=== PATIENT | female | born 1935 | race Caucasian/White ===

== ENCOUNTER 2021-10-02 19:17 | Inpatient (IN) | payer MEDICARE ==
[~2021-10-02] VITALS: Ht 160 cm; Wt 69.9 kg
[~2021-10-02 19:17] MED LIST: DARVOCET N 1001 TAB PO; FLOMAX0.4 MG PO; MEDROL DOSEPAK4 MG PO; PROPRANOLOL HC120 M1 PO; VICODIN 5/500 505 MG PO
[2021-10-02 19:22] VITALS: BP 219/116
[2021-10-02 19:23] VITALS: BP 219/116
[2021-10-02] MEDS ORDERED: LOSARTAN-HCTZ1 EAC2 PO (19:25)
[2021-10-02] MEDS ORDERED: PROPRANOLOL HC160 MG PO (19:25)
[2021-10-02] MEDS ORDERED: ECOTRIN325 M1 PO (19:26)
[2021-10-02 20:59] LABS: BILIRUBIN Negative (Negative); BLOOD 1+ (Negative); CLARITY Clear (Clear); COLOR Yellow (Yellow); GLUCOSE Trace (Negative); KETONE Negative (Negative); LEUKO ESTERASE Negative (Negative); NITRITE Negative (Negative); PH 7.5 (4.5-8.0); UROBILINOGEN 0.2 E.U./dl (0.0-1.0)
[2021-10-02 21:06] LABS: BACTERIA TRACE; RBC 0-2 rbc/hpf (0-2)
[2021-10-02 22:04] VITALS: BP 180/88
[2021-10-02] MEDS ORDERED: IRBESARTAN300 M1 PO (22:08)
[2021-10-02] MEDS ORDERED: LORAZEPAM0.5 MG PO (22:08)
[2021-10-02] MEDS ORDERED: AMLODIPINE BESY10 MG PO (22:10)
[2021-10-02 23:00] LABS: BASO # 0.1 10*3/uL (0.0-0.1); BASO % 0.5 % (0.0-1.0); EOS % 0.3 % (1.0-4.0); HEMATOCRIT 40.3 % (37.0-47.0); LYMPH # 1.3 10*3/uL (1.3-4.4); MEAN CELL VOLUME 87.2 fl (81.0-99.0); MEAN CORPUSCULAR HGB 29.4 pg (27.0-31.0); MEAN CORPUSCULAR HGB CONC 33.7 g/dl (33.0-37.0); MEAN PLATELET VOLUME 10.4 fl (9.6-12.3); MONO # 0.8 10*3/uL (0.1-1.0); MONO % 5.8 % (3.0-9.0); NEUT # 10.9 10*3/uL (2.3-7.9); NEUT % 82.8 % (47.0-73.0); PLATELET COUNT AUTOMATED 243 10*3/uL (130-400); RED BLOOD COUNT 4.62 10*6/uL (4.10-5.10); RED CELL DISTRI WIDTH 12.8 % (0-14.5); WHITE BLOOD COUNT 13.1 10*3/uL (4.8-10.8)
[2021-10-02 23:16] LABS: ALBUMIN 3.5 gm/dl (3.1-4.5); ALKALINE PHOSPHATASE 123 U/L (45-117); BUN 12 mg/dl (7-24); CHLORIDE 104 mmol/L (98-107); CREATININE 0.92 mg/dL (0.55-1.02); POTASSIUM 3.9 mmol/L (3.5-5.1); SGOT/AST 27 IU/L (3-35); SGPT/ALT 27 U/L (12-78); SODIUM 138 mmol/L (136-145); TOTAL PROTEIN 7.6 gm/dL (6.4-8.2)
[2021-10-03] VITALS (11 sets, daily range): BP systolic 144–196; BP diastolic 72–100
[2021-10-03 06:19] LABS: ALBUMIN 3.2 gm/dl (3.1-4.5); ALKALINE PHOSPHATASE 113 U/L (45-117); BUN 12 mg/dl (7-24); CHLORIDE 103 mmol/L (98-107); CREATININE 0.81 mg/dL (0.55-1.02); POTASSIUM 3.7 mmol/L (3.5-5.1); SGOT/AST 24 IU/L (3-35); SGPT/ALT 24 U/L (12-78); SODIUM 138 mmol/L (136-145)
[2021-10-03 06:27] LABS: BASO # 0.1 10*3/uL (0.0-0.1); BASO % 0.5 % (0.0-1.0); EOS % 0.2 % (1.0-4.0); LYMPH # 1.1 10*3/uL (1.3-4.4); LYMPH % 11.7 % (27.0-41.0); MEAN CELL VOLUME 88.2 fl (81.0-99.0); MEAN CORPUSCULAR HGB 29.7 pg (27.0-31.0); MEAN CORPUSCULAR HGB CONC 33.7 g/dl (33.0-37.0); MONO # 0.6 10*3/uL (0.1-1.0); MONO % 6.6 % (3.0-9.0); NEUT # 7.6 10*3/uL (2.3-7.9); NEUT % 80.8 % (47.0-73.0); PLATELET COUNT AUTOMATED 228 10*3/uL (130-400); RED BLOOD COUNT 4.31 10*6/uL (4.10-5.10); RED CELL DISTRI WIDTH 12.8 % (0-14.5); WHITE BLOOD COUNT 9.5 10*3/uL (4.8-10.8)
[2021-10-04] VITALS (8 sets, daily range): BP systolic 117–206; BP diastolic 55–91
[2021-10-04 06:28] LABS: BASO % 0.1 % (0.0-1.0); LYMPH # 1.2 10*3/uL (1.3-4.4); LYMPH % 9.9 % (27.0-41.0); MEAN CELL VOLUME 88.1 fl (81.0-99.0); MEAN PLATELET VOLUME 10.8 fl (9.6-12.3); MONO # 0.9 10*3/uL (0.1-1.0); MONO % 6.9 % (3.0-9.0); NEUT # 10.4 10*3/uL (2.3-7.9); NEUT % 82.5 % (47.0-73.0); PLATELET COUNT AUTOMATED 232 10*3/uL (130-400); WHITE BLOOD COUNT 12.5 10*3/uL (4.8-10.8)
[2021-10-04 06:40] LABS: BUN 17 mg/dl (7-24); CHLORIDE 104 mmol/L (98-107); CREATININE 0.97 mg/dL (0.55-1.02); POTASSIUM 3.7 mmol/L (3.5-5.1); SODIUM 137 mmol/L (136-145)
[2021-10-05] VITALS: BP 175/61
[2021-10-05 06:13] LABS: BUN 19 mg/dl (7-24); CHLORIDE 107 mmol/L (98-107); CREATININE 0.87 mg/dL (0.55-1.02); POTASSIUM 3.6 mmol/L (3.5-5.1); SODIUM 137 mmol/L (136-145)
[2021-10-05 06:32] LABS: BASO % 0.1 % (0.0-1.0); EOS % 0.1 % (1.0-4.0); HEMATOCRIT 31.4 % (37.0-47.0); LYMPH # 1.7 10*3/uL (1.3-4.4); LYMPH % 16.2 % (27.0-41.0); MEAN CELL VOLUME 87.2 fl (81.0-99.0); MEAN CORPUSCULAR HGB 29.2 pg (27.0-31.0); MEAN CORPUSCULAR HGB CONC 33.4 g/dl (33.0-37.0); MEAN PLATELET VOLUME 11.3 fl (9.6-12.3); MONO # 1.5 10*3/uL (0.1-1.0); MONO % 14.2 % (3.0-9.0); NEUT # 7.2 10*3/uL (2.3-7.9); NEUT % 69.1 % (47.0-73.0); PLATELET COUNT AUTOMATED 189 10*3/uL (130-400); RED CELL DISTRI WIDTH 13.2 % (0-14.5); WHITE BLOOD COUNT 10.4 10*3/uL (4.8-10.8)
[2021-10-05 08:00] VITALS: BP 102/75
[2021-10-05 16:00] VITALS: BP 183/60
[2021-10-05 20:00] VITALS: BP 180/61
[2021-10-06] VITALS: BP 167/66
[2021-10-06 06:35] LABS: BASO % 0.4 % (0.0-1.0); EOS # 0.1 10*3/uL (0.0-0.4); EOS % 1.3 % (1.0-4.0); HEMATOCRIT 32.1 % (37.0-47.0); LYMPH # 1.6 10*3/uL (1.3-4.4); LYMPH % 16.8 % (27.0-41.0); MEAN CELL VOLUME 87.9 fl (81.0-99.0); MEAN CORPUSCULAR HGB 29.6 pg (27.0-31.0); MEAN CORPUSCULAR HGB CONC 33.6 g/dl (33.0-37.0); MEAN PLATELET VOLUME 10.6 fl (9.6-12.3); MONO # 1.2 10*3/uL (0.1-1.0); MONO % 12.5 % (3.0-9.0); NEUT # 6.6 10*3/uL (2.3-7.9); NEUT % 68.2 % (47.0-73.0); PLATELET COUNT AUTOMATED 174 10*3/uL (130-400); RED BLOOD COUNT 3.65 10*6/uL (4.10-5.10); RED CELL DISTRI WIDTH 13.3 % (0-14.5); WHITE BLOOD COUNT 9.7 10*3/uL (4.8-10.8)
[2021-10-06 06:51] LABS: BUN 15 mg/dl (7-24); CHLORIDE 105 mmol/L (98-107); CREATININE 0.76 mg/dL (0.55-1.02); POTASSIUM 3.3 mmol/L (3.5-5.1); SODIUM 137 mmol/L (136-145)
[2021-10-06 08:00] VITALS: BP 109/67
[2021-10-06 12:00] VITALS: BP 111/72; BP 152/48
[2021-10-06 20:00] VITALS: BP 171/63
[2021-10-07] VITALS: BP 146/65
[2021-10-07 07:18] LABS: BASO % 0.3 % (0.0-1.0); EOS # 0.3 10*3/uL (0.0-0.4); HEMATOCRIT 31.7 % (37.0-47.0); LYMPH # 1.3 10*3/uL (1.3-4.4); LYMPH % 14.7 % (27.0-41.0); MEAN CELL VOLUME 87.8 fl (81.0-99.0); MEAN CORPUSCULAR HGB 29.6 pg (27.0-31.0); MEAN CORPUSCULAR HGB CONC 33.8 g/dl (33.0-37.0); MEAN PLATELET VOLUME 10.8 fl (9.6-12.3); MONO % 10.8 % (3.0-9.0); NEUT # 6.2 10*3/uL (2.3-7.9); NEUT % 70.4 % (47.0-73.0); PLATELET COUNT AUTOMATED 182 10*3/uL (130-400); RED BLOOD COUNT 3.61 10*6/uL (4.10-5.10); RED CELL DISTRI WIDTH 13.2 % (0-14.5); WHITE BLOOD COUNT 8.8 10*3/uL (4.8-10.8)
[2021-10-07 08:00] VITALS: BP 162/62; BP 183/65
[2021-10-07 12:00] VITALS: BP 170/58
[2021-10-07 16:00] VITALS: BP 185/68
[2021-10-07 20:00] VITALS: BP 193/68
[2021-10-08] VITALS (8 sets, daily range): BP systolic 143–180; BP diastolic 51–76
[2021-10-09] VITALS: BP 144/51
[2021-10-09 06:07] VITALS: BP 172/52
[2021-10-09 06:30] LABS: BASO % 0.5 % (0.0-1.0); EOS # 0.3 10*3/uL (0.0-0.4); EOS % 3.4 % (1.0-4.0); HEMATOCRIT 31.4 % (37.0-47.0); LYMPH # 1.1 10*3/uL (1.3-4.4); LYMPH % 12.5 % (27.0-41.0); MEAN CELL VOLUME 88.2 fl (81.0-99.0); MEAN CORPUSCULAR HGB 29.8 pg (27.0-31.0); MEAN CORPUSCULAR HGB CONC 33.8 g/dl (33.0-37.0); MEAN PLATELET VOLUME 10.1 fl (9.6-12.3); MONO # 0.9 10*3/uL (0.1-1.0); MONO % 10.8 % (3.0-9.0); NEUT # 6.1 10*3/uL (2.3-7.9); NEUT % 72.1 % (47.0-73.0); PLATELET COUNT AUTOMATED 225 10*3/uL (130-400); RED BLOOD COUNT 3.56 10*6/uL (4.10-5.10); RED CELL DISTRI WIDTH 13.1 % (0-14.5); WHITE BLOOD COUNT 8.5 10*3/uL (4.8-10.8)
[2021-10-09 06:54] LABS: BUN 11 mg/dl (7-24); CHLORIDE 103 mmol/L (98-107); CREATININE 0.74 mg/dL (0.55-1.02); POTASSIUM 3.9 mmol/L (3.5-5.1); SODIUM 137 mmol/L (136-145)
[2021-10-09 08:00] VITALS: BP 156/59
[2021-10-09] MEDS ORDERED: PROPRANOLOL ER80 MG PO (10:46)
[2021-10-09] MEDS ORDERED: LOSARTAN POTAS100 M1 PO (10:46)
[2021-10-09] MEDS ORDERED: APRESOLINE25 MG PO (10:46)
[2021-10-09] MEDS ORDERED: Vitamin D (1,000 UNI PO (10:46)
[2021-10-09 12:00] VITALS: BP 155/57
[2021-10-09 16:00] VITALS: BP 143/60
[2021-10-09 20:00] VITALS: BP 144/54
[2021-10-10] VITALS: BP 156/57
[2021-10-10 05:40] VITALS: BP 156/64
[2021-10-10 08:00] VITALS: BP 148/53
[2021-10-10] MEDS ORDERED: NORVASC5 MG PO (10:00)
== END 2021-10-10 14:11 | DRG 522 ==
LOC: ED 19:17 → 5E 22:14 → 4E 22:14 → EDHOLD 22:14 → 4E 10-03 16:27 → 5E 10-06 16:32
PROVIDERS: Family Medicine; Internal Medicine; Orthopaedic Surgery; Physician Assistant; Student in an Organized Health Care Education/Training Program; ADMIT Internal Medicine; ATTEND Internal Medicine
PROC: 3E0T3BZ Introduction of Anesthetic Agent into Peripheral Nerves and Plexi, Percutaneous Approach (ICD-10-PCS; 2021-10-03)
PROC: 3E0T33Z Introduction of Anti-inflammatory into Peripheral Nerves and Plexi, Percutaneous Approach (ICD-10-PCS; 2021-10-03)
PROC: 0SRR0JZ Replacement of Right Hip Joint, Femoral Surface with Synthetic Substitute, Open Approach (ICD-10-PCS; principal; 2021-10-04)
PROC: 3E0T3BZ Introduction of Anesthetic Agent into Peripheral Nerves and Plexi, Percutaneous Approach (ICD-10-PCS; 2021-10-04)
PROC: 3E0T33Z Introduction of Anti-inflammatory into Peripheral Nerves and Plexi, Percutaneous Approach (ICD-10-PCS; 2021-10-04)
DX: S72.031A Displaced midcervical fracture of right femur, initial encounter for closed fracture (principal); I16.0 Hypertensive urgency; M32.9 Systemic lupus erythematosus, unspecified; F41.9 Anxiety disorder, unspecified; Y99.8 Other external cause status; E83.41 Hypermagnesemia; Z66 Do not resuscitate; I95.1 Orthostatic hypotension; W19.XXXA Unspecified fall, initial encounter; Z20.822 Contact with and (suspected) exposure to COVID-19; I10 Essential (primary) hypertension; R73.9 Hyperglycemia, unspecified; E87.6 Hypokalemia; E80.6 Other disorders of bilirubin metabolism; Y93.89 Activity, other specified; Y92.89 Other specified places as the place of occurrence of the external cause; Z51.5 Encounter for palliative care; Z88.2 Allergy status to sulfonamides; Z91.013 Allergy to seafood; Z88.8 Allergy status to other drugs, medicaments and biological substances; Z90.49 Acquired absence of other specified parts of digestive tract; Z83.3 Family history of diabetes mellitus; Z79.899 Other long term (current) drug therapy; Z79.82 Long term (current) use of aspirin

== ENCOUNTER → 2021-10-19 | Outpatient (CLI) | payer MEDICARE ==
[~2021-10-19] MED LIST changes: +AMLODIPINE BESY10 MG PO; +APRESOLINE25 MG PO; +ECOTRIN325 M1 PO; +IRBESARTAN300 M1 PO; +LORAZEPAM0.5 MG PO; +LOSARTAN POTAS100 M1 PO; +LOSARTAN-HCTZ1 EAC2 PO; +NORVASC5 MG PO; +PROPRANOLOL ER80 MG PO; +PROPRANOLOL HC160 MG PO; +Vitamin D (1,000 UNI PO
== END | disposition home or self-care (01) ==
LOC: ORTHO 02:16
PROVIDERS: ATTEND Orthopaedic Surgery
DX: S72.031D Displaced midcervical fracture of right femur, subsequent encounter for closed fracture with routine healing (principal); X58.XXXD Exposure to other specified factors, subsequent encounter

== ENCOUNTER → 2021-12-07 | Outpatient (CLI) | payer MEDICARE | END | disposition home or self-care (01) | LOC: ORTHO 02:46 | PROVIDERS: ATTEND Orthopaedic Surgery | DX: M85.88 Other specified disorders of bone density and structure, other site (principal); S72.031D Displaced midcervical fracture of right femur, subsequent encounter for closed fracture with routine healing; X58.XXXD Exposure to other specified factors, subsequent encounter ==